=== PATIENT | female | born 1945 | race Caucasian/White ===

== ENCOUNTER → 2017-04-01 | Day surgery (SDC) | payer MEDICARE, OTHER ==
[~2017-04-01] MED LIST: ARIMIDEX1 MG PO; CALCIUM 1,0001 EACH PO; CALCIUM 500 +1 EAC5 PO; CALCIUM 5001 TAB PO; CALCIUM500 M1; COQ10-VIT E 101 EACH PO; FELDENE20 MG PO; FISH OIL 1,2001 CAP PO; LECITHIN1200 M1 PO; LETROZOLE2.5 MG PO; MELATONIN10 M3 PO; MELOXICAM15 MG PO; MULTI VITAMIN1 EACH PO; NATURAL VITA400 UNI2 PO; OMEPRAZOLE20 M2 PO; PROBIOTIC1 EAC6 PO; VITAMIN C1000 M2 PO; VITAMIN D1000 UNIT PO; [UNRECOGNIZED DRUG - REMARK] TOP
--- NOTE | ~2017-04-01 | OR ---
Unit #: [id number] #: [id number] Patient: NTAE MARINELLI [id number] [address] [place], [place] [address] [id number] O MR#: [id number] NAME: NATE MARINELLI ROOM: Date of Procedure: 04/01/2017 Admission Date: 04/01/2017 Surgeon: Kaleb Donaldson M.D. : 1945 Attending Physician: Kaleb Donaldson M.D. Primary Care Physician: Munira Good M.D. OPERATIVE REPORT PREOPERATIVE DIAGNOSIS Neck pain, cervical facet disease. POSTOPERATIVE DIAGNOSIS Neck pain, cervical facet disease. PROCEDURE PERFORMED Cervical facet injection x2 levels with intravenous sedation and fluoroscopic guidance for needle localization. INDICATIONS FOR PROCEDURE The patient is a 71-year-old female with return of neck pain due to known degenerative cervical facet disease. She was last treated with injections at the C5-C6 and C6-C7 levels in 05/2016. She did very well until just recently. Based on his history, pathology, symptomatology, and response we are going to proceed with a repeat cervical facet injections today. DESCRIPTION OF PROCEDURE The patient was placed in a seated position. Standard monitors were applied. 2 mg of Versed were given in divided doses for anxiolysis and sedation, which were adequate. Vital signs remained stable. Sterile prep and drape then of the cervical area was performed. The skin then to the right of midline was localized with 1% lidocaine lateral to the C5-C6 and C6-C7 facet joints. Using fluoroscopic guidance, a 22-gauge Quincke point spinal needles were advanced at both of these levels to bring the needle tip to within the edge of the joint. After this confirmed with fluoroscopic guidance, a dose of 1 mL of a mixture of 80 mg of Depo-Medrol and 3 mL of 0.25% bupivacaine was deposited at each joint, 0.5 mL within the joint and 0.5 mL just outside the joint. The needles were flushed and removed. The patient tolerated this part of procedure well. The exact same procedure was then repeated on the left at the C5-C6 and C6-C7 levels again as localized the skin. A 22-gauge Quincke point spinal needle was advanced into the edge of the respective facet joints. There were no complaints of paresthesia. After confirming proper positioning, 1 mL of the previously mentioned injectate was deposited, 0.5 mL within and 0.5 mL just outside the joint. The needles were flushed and removed. The patient tolerated the entire procedure well. Dictated by... Kaleb Donaldson M.D. Unit #: [id number] #: [id number] Patient: NATE MARINELLI BLAINE/nancy TD: 04/01/2017 14:43 JOB #: [id number] OPERATIVE REPORT Page 1 of 1 X Kaleb Donaldson MD X PROCEDURE OPERATIVE NOTE
== END | disposition home or self-care (01) ==
LOC: CCSC 08:57
DX: M47.22 Other spondylosis with radiculopathy, cervical region (principal); M53.82 Other specified dorsopathies, cervical region; M19.90 Unspecified osteoarthritis, unspecified site; Z88.5 Allergy status to narcotic agent; Z79.899 Other long term (current) drug therapy
CPT/HCPCS: J1040; J2250

== ENCOUNTER → 2017-04-08 | Day surgery (SDC) | payer MEDICARE, OTHER ==
--- NOTE | ~2017-04-08 | OR ---
Unit #: [id number] #: [id number] Patient: NATE MARINELLI [id number] [address] [place], [place] [address] [id number] O MR#: [id number] NAME: NATE MARINELLI ROOM: Date of Procedure: 04/08/2017 Admission Date: 04/08/2017 Surgeon: Kaleb Donaldson M.D. : 1945 Attending Physician: Kaleb Donaldson M.D. Primary Care Physician: Munira Good M.D. OPERATIVE REPORT PREOPERATIVE DIAGNOSES Postlumbar fusion, degenerative lumbar facet disease, back pain. POSTOPERATIVE DIAGNOSES Postlumbar fusion, degenerative lumbar facet disease, back pain. PROCEDURE PERFORMED Lumbar facet injection x2 levels with intravenous sedation and fluoroscopic guidance for needle localization. INDICATIONS FOR PROCEDURE The patient is a 71-year-old female, status post L4-L5 fusion. She has back pain consistent with facet disease. In the past, she has had facet injections, which is being quite successful. She has a cervical facet disease. Recent cervical facet injection resulted in significant improvement of her symptoms. Based on history of symptoms, pathology, and treatment options, we are going to proceeded with facet injections above and below her prior lumbar fusion. DESCRIPTION OF PROCEDURE The patient was placed in a prone position. Standard monitors were applied. 2 mg of Versed were given for sedation and anxiolysis, which were adequate. Vital signs remained stable. Sterile prep and drape then of the lumbosacral area was performed. Fluoroscopy was then used to identify the right-sided at L3-L4 and L5-S1 facet joints. The skin overlying this was localized with 1% lidocaine. At each of these levels, a 22-gauge Quincke point spinal needle was advanced with fluoroscopic guidance to bring the needle tip within the edge of the respective facet joint. Fluoroscopy was used to confirm proper needle tip positioning. Once this was confirmed, a dose of 1 mL of a mixture of 80 mg of Depo-Medrol and 3 mL of 0.25% bupivacaine was injected at each facet joint, approximately 0.5 mL within the joint, 0.5 mL just outside the joint. The needles were flushed and removed. The skin then to the left of midline overlying the L3-L4 and L5-S1 facet joints were localized with 1% lidocaine with use of fluoroscopic guidance. At both of these levels, a 22-gauge Quincke point spinal needles were advanced with fluoroscopic guidance. After confirming proper needle tip positioning in the left L3-L4 and L5-S1 facet joints, a dose of 1 mL of the previous mentioned mixture was used, 0.5 mL within the joint, 0.5 mL just outside the joint. The needles were flushed and removed. Unit #: [id number] #: [id number] Patient: NATE MARINELLI Dictated by... Ricky Aguilar/nancy TD: 04/08/2017 11:52 JOB #: [id number] CC: Rohit Shea M.D. OPERATIVE REPORT Page 1 of 1 X Kaleb Donaldson MD X PROCEDURE OPERATIVE NOTE
== END | disposition home or self-care (01) ==
LOC: CCSC 09:03
DX: M47.26 Other spondylosis with radiculopathy, lumbar region (principal); M53.86 Other specified dorsopathies, lumbar region; M19.90 Unspecified osteoarthritis, unspecified site; Z98.1 Arthrodesis status
CPT/HCPCS: J1040; J2250